=== PATIENT | male | born 1955 | race Caucasian/White ===

== ENCOUNTER → 2017-02-02 | Outpatient (CLI) | payer BC ==
[2017-02-02 10:06] LABS: Appearance,Urine Clear (Clear); Bacteria,Urine Occasional /hpf; Bilirubin,Urine Negative (Negative); Glucose,Urine (UA) Negative (Negative); Ketones,Urine Negative (Negative); Leukocyte Esterase,Urine Trace (Negative); Mucus,Urine Occasional /hpf; Nitrite,Urine Negative (Negative); Particle Count 3469; Protein,Urine Trace (Negative); RBC,Urine 2 /hpf (0-5); Specific Gravity,Urine 1.021 (1.001-1.035); UA Billing (MACRO vs. MICRO) MICRO; Urobilinogen,Urine <2.0 mg/dL (<2.0); WBC,Urine 8 /hpf (0-5)
[2017-02-02 12:29] LABS: Hemoglobin A1C 6.2 % (4.2-6.1)
== END | disposition home or self-care (01) ==
LOC: LABWHC1 09:08
PROVIDERS: ATTEND Internal Medicine
DX: E11.9 Type 2 diabetes mellitus without complications (principal); R31.9 Hematuria, unspecified
CPT/HCPCS: 36415; 81001; 82947; 83036

== ENCOUNTER → 2017-06-09 | Outpatient (CLI) | payer BC ==
[2017-06-09 13:58] LABS: Hemoglobin A1C 6.4 % (4.2-6.1)
== END ==
LOC: LABWHC1 08:44
PROVIDERS: ATTEND Internal Medicine
DX: E11.9 Type 2 diabetes mellitus without complications (principal)
CPT/HCPCS: 36415; 82947; 83036

== ENCOUNTER → 2017-06-12 | Outpatient (CLI) | payer BC ==
[2017-06-12 12:34] LABS: Basophils % (A) 1 %; CH 31.3; CHCM 35.4; Eosinophils # (A) 0.1 k/uL (0-0.7); Eosinophils % (A) 2 %; HCT 42.8 % (39.0-53.0); HDW 2.92; HGB 15.3 gm/dL (13.0-17.5); Luc # (Auto) 0.08; Luc % (Auto) 2; Lymphocytes # (A) 1.6 k/uL (1.0-4.8); Lymphocytes % (A) 29 %; MCH 31.8 pg (25.0-35.0); MCHC 35.8 g/dL (31.0-37.0); Mean Platelet Volume 6.8; Monocytes # (A) 0.3 k/uL (0-1.0); Monocytes % (A) 5 %; Neutrophils # (A) 3.4 k/uL (1.3-7.7); Neutrophils % (A) 61 %; RBC 4.81 m/uL (4.30-5.90); RDW 13.1 % (11.5-15.5); WBC 5.6 k/uL (3.8-10.6); WBC (Perox) 5.27
[2017-06-12 13:16] LABS: C Reactive Protein <5.0 mg/L (<10.0); Rheumatoid Factor, Qnt <9 IU/mL (<12); Uric Acid 4.7 mg/dL (3.5-8.5)
[2017-06-12 14:33] LABS: Erythrocyte Sedimentation Rate 2 mm/hr (0-15)
[2017-06-13 11:17] LABS: HLA B27 NEGATIVE; HLA B27 Comment SEEBELOW
== END | disposition home or self-care (01) ==
LOC: LABWHC1 12:09
PROVIDERS: ATTEND Podiatrist Foot & Ankle Surgery
DX: D64.9 Anemia, unspecified (principal); M12.0 Chronic postrheumatic arthropathy [Jaccoud]
CPT/HCPCS: 36415; 84550; 85025; 85652; 86038; 86140; 86431; 86812

== ENCOUNTER → 2017-06-20 | Outpatient (CLI) | payer BC ==
--- NOTE | 2017-06-20 15:19 | XR ---
Left foot HISTORY: Left foot pain 3 views of the left foot correlated to bone scan same date Degenerative changes are present at the first metatarsophalangeal joint. Alignment and bone mineraliz ation are maintained. No fracture or dislocation is evident. Joint spaces and the tarsometatarsal amanda nts of the second and third digits not well defined. IMPRESSION: Difficult to exclude ankylosis at the tarsometatarsal joints of the second and third digi ts. No evident fracture or dislocation. Findings in the first metatarsophalangeal joint as described.
--- NOTE | 2017-06-20 15:33 | NM ---
EXAMINATION TYPE: NM bone 3 phase DATE OF EXAM: 06/20/2017 COMPARISON: Left foot same date HISTORY: Left fifth metatarsal pain, M 86.1 Triple phase bone scintigraphy was performed following the injection of 25.6 mCi Tc 99m MDP. Immedia te images and 3 hours post injection images acquired. FINDINGS: Uptake present within the mid foot blood pool images on the right. Relative symmetric uptake on blood flow. Delayed images show uptake in the first metatarsophalangeal joints, lateral aspect of the righ t foot greater than left. Midfoot uptake on the right is greater than on the left. IMPRESSION: Findings felt more likely to represent degenerative changes. Uptake within the lateral right foot is greater than the left foot. This may be due to stress changes.
== END | disposition home or self-care (01) ==
LOC: RADNMMAIN 07:35
PROVIDERS: ATTEND Podiatrist Foot & Ankle Surgery
DX: M79.672 Pain in left foot (principal)
CPT/HCPCS: 73630; 78315; A9503

== ENCOUNTER → 2017-10-11 | Outpatient (CLI) | payer BC ==
[2017-10-11 15:09] LABS: CH 30.9; CHCM 33.8; HCT 44.6 % (39.0-53.0); HGB 15.2 gm/dL (13.0-17.5); MCH 31.3 pg (25.0-35.0); MCV 91.9 fL (80.0-100.0); Mean Platelet Volume 7.3; RBC 4.85 m/uL (4.30-5.90); RDW 14.8 % (11.5-15.5); WBC 7.2 k/uL (3.8-10.6)
[2017-10-11 15:33] LABS: ALT 84 U/L (21-72); AST 58 U/L (17-59); Alkaline Phosphatase 57 U/L (38-126); Anion Gap 9 mmol/L; Blood Urea Nitrogen 18 mg/dL (9-20); Calcium 9.6 mg/dL (8.4-10.2); Carbon Dioxide 24 mmol/L (22-30); Chloride 108 mmol/L (98-107); Cholesterol 143 mg/dL (<200); Glucose 111 mg/dL (74-99); HDL Cholesterol 46 mg/dL (40-60); Non-African American GFR(MDRD) >60 (>60 ml/min/1.73 sqM); Potassium 4.4 mmol/L (3.5-5.1); Sodium 141 mmol/L (137-145); Total Bilirubin 0.7 mg/dL (0.2-1.3); Total Protein 7.4 g/dL (6.3-8.2)
[2017-10-11 16:01] LABS: Prostate Specific Antigen 2.09 ng/mL (0.00-4.00)
== END | disposition home or self-care (01) ==
LOC: LABWHC1 14:29
PROVIDERS: ATTEND Internal Medicine
DX: Z00.00 Encounter for general adult medical examination without abnormal findings (principal); E55.9 Vitamin D deficiency, unspecified; E78.5 Hyperlipidemia, unspecified; I10 Essential (primary) hypertension; N40.0 Benign prostatic hyperplasia without lower urinary tract symptoms; E11.9 Type 2 diabetes mellitus without complications; E87.8 Other disorders of electrolyte and fluid balance, not elsewhere classified
CPT/HCPCS: 36415; 80053; 80061; 82306; 83036; 84153; 85027

== ENCOUNTER → 2018-01-19 | Outpatient (CLI) | payer BC ==
[2018-01-19 21:20] LABS: Hemoglobin A1C 6.9 % (4.0-6.0)
== END | disposition home or self-care (01) ==
LOC: LABWHC1 09:35
PROVIDERS: ATTEND Internal Medicine
DX: I10 Essential (primary) hypertension (principal); E11.9 Type 2 diabetes mellitus without complications
CPT/HCPCS: 36415; 82947; 83036

== ENCOUNTER → 2018-06-01 | Outpatient (CLI) | payer OTHER | END | disposition home or self-care (01) | LOC: LABWHC1 10:54 | PROVIDERS: ATTEND Internal Medicine | DX: E11.9 Type 2 diabetes mellitus without complications (principal) | CPT/HCPCS: 36415; 82947; 83036 ==

== ENCOUNTER → 2018-10-09 | Outpatient (CLI) | payer OTHER ==
[2018-10-09 09:57] LABS: Basophils % (A) 1 %; Eosinophils # (A) 0.2 k/uL (0-0.7); Eosinophils % (A) 3 %; HCT 42.2 % (39.0-53.0); HGB 14.1 gm/dL (13.0-17.5); Lymphocytes # (A) 1.3 k/uL (1.0-4.8); Lymphocytes % (A) 26 %; MCH 30.5 pg (25.0-35.0); MCHC 33.4 g/dL (31.0-37.0); MCV 91.5 fL (80.0-100.0); Mean Platelet Volume 6.6; Monocytes # (A) 0.3 k/uL (0-1.0); Monocytes % (A) 6 %; Neutrophils # (A) 3.1 k/uL (1.3-7.7); Neutrophils % (A) 63 %; Platelet Count 234 k/uL (150-450); RBC 4.61 m/uL (4.30-5.90); RDW 13.6 % (11.5-15.5); WBC 4.9 k/uL (3.8-10.6)
[2018-10-09 12:43] LABS: Erythrocyte Sedimentation Rate 2 mm/hr (0-15)
[2018-10-09 17:29] LABS: ALT 51 U/L (10-49); AST 44 U/L (14-35); Albumin/Globulin Ratio 2.26 (1.20-2.10); Alkaline Phosphatase 47 U/L (41-126); C Reactive Protein <0.4 mg/dL (0.0-0.8); Carbon Dioxide 25.4 mmol/L (21.6-31.8); Chloride 111 mmol/L (96-109); Cholesterol 115 mg/dL (0-200); Creatine Kinase 210 U/L (35-257); Globulin 1.9 g/dL (2.1-3.7); Glucose 133 mg/dL (70-110); Potassium 4.6 mmol/L (3.5-5.5); Sodium 141 mmol/L (135-145); Total Bilirubin 0.6 mg/dL (0.3-1.2); Total Protein 6.2 g/dL (6.2-8.2)
[2018-10-09 18:39] LABS: Hemoglobin A1C 6.9 % (4.0-6.0)
== END | disposition home or self-care (01) ==
LOC: LABWHC1 09:21
PROVIDERS: ATTEND Internal Medicine
DX: N40.0 Benign prostatic hyperplasia without lower urinary tract symptoms (principal); E11.9 Type 2 diabetes mellitus without complications; E78.5 Hyperlipidemia, unspecified; I10 Essential (primary) hypertension; E03.9 Hypothyroidism, unspecified; E66.9 Obesity, unspecified; E55.9 Vitamin D deficiency, unspecified
CPT/HCPCS: 36415; 80053; 80061; 82306; 82550; 83036; 84153; 84443; 85025; 85652; 86140

== ENCOUNTER → 2019-03-08 | Outpatient (CLI) | payer OTHER ==
[2019-03-09 01:26] LABS: Hemoglobin A1C 7.3 % (4.0-6.0)
== END ==
LOC: LABWHC1 15:20
PROVIDERS: ATTEND Internal Medicine
DX: E11.9 Type 2 diabetes mellitus without complications (principal)
CPT/HCPCS: 36415; 82947; 83036

== ENCOUNTER → 2019-09-04 | Outpatient (CLI) | payer OTHER ==
[2019-09-04 19:25] LABS: Hemoglobin A1C 6.8 % (4.0-6.0)
== END | disposition home or self-care (01) ==
LOC: LABWHC1 07:16
PROVIDERS: ATTEND Internal Medicine
DX: E11.65 Type 2 diabetes mellitus with hyperglycemia (principal)
CPT/HCPCS: 36415; 82947; 83036

== ENCOUNTER → 2019-11-04 | Outpatient (CLI) | payer OTHER ==
--- NOTE | 2019-11-05 08:05 | XR ---
EXAMINATION TYPE: XR Hip Complete RT DATE OF EXAM: 11/04/2019 COMPARISON: NONE HISTORY: Pain TECHNIQUE: 2 views submitted FINDINGS: There is no evidence of erosive change or acute fracture. Severe narrowing of the hip joint with hype rtrophic change of the acetabulum. IMPRESSION: 1. Severe arthropathy.
--- NOTE | 2019-11-05 08:06 | XR ---
EXAMINATION TYPE: XR femur RT DATE OF EXAM: 11/04/2019 CLINICAL HISTORY: TECHNIQUE: Two views of the femur are obtained. COMPARISON: None FINDINGS: There is no acute fracture or dislocation seen in the right femur. There is severe arthrop athy involving the hip joint with hypertrophic change of the acetabulum. This can be associated with femoral acetabular impingement. Tiny bone island involving the femoral head noted. Significant arthro estrella of the knee joint. IMPRESSION: 1. Severe arthropathy involving the hip and knee joint.
== END | disposition home or self-care (01) ==
LOC: RADXRMAIN 17:13
PROVIDERS: ATTEND Internal Medicine
DX: M12.851 Other specific arthropathies, not elsewhere classified, right hip (principal); M12.861 Other specific arthropathies, not elsewhere classified, right knee
CPT/HCPCS: 73502

== ENCOUNTER → 2019-12-13 | Outpatient (CLI) | payer OTHER ==
[2019-12-13 13:47] LABS: Basophils # (A) 0.2 k/uL (0-0.2); Basophils % (A) 1 %; Eosinophils # (A) 0.1 k/uL (0-0.7); Eosinophils % (A) 0 %; HCT 41.4 % (39.0-53.0); HGB 14.1 gm/dL (13.0-17.5); Lymphocytes % (A) 13 %; MCH 31.1 pg (25.0-35.0); MCV 91.4 fL (80.0-100.0); Mean Platelet Volume 7.5; Monocytes # (A) 0.7 k/uL (0-1.0); Monocytes % (A) 5 %; Neutrophils # (A) 11.6 k/uL (1.3-7.7); Neutrophils % (A) 79 %; Platelet Count 282 k/uL (150-450); RBC 4.53 m/uL (4.30-5.90); RDW 12.8 % (11.5-15.5); WBC 14.6 k/uL (3.8-10.6)
[2019-12-13 18:01] LABS: Erythrocyte Sedimentation Rate 6 mm/hr (0-15)
[2019-12-13 19:57] LABS: Hemoglobin A1C 8.1 % (4.0-6.0)
[2019-12-13 20:44] LABS: ALT 37 U/L (10-49); AST 25 U/L (14-35); African American GFR (CKD) 91.1 (60.0-200.0); Alkaline Phosphatase 51 U/L (41-126); C Reactive Protein <0.4 mg/dL (0.0-0.8); Calcium 9.6 mg/dL (8.7-10.3); Carbon Dioxide 29.2 mmol/L (21.6-31.8); Chloride 105 mmol/L (96-109); Chol/HDL Ratio 2.38; Cholesterol 143 mg/dL (0-200); Creatine Kinase 49 U/L (35-257); GGT 42 U/L (0-73); Glucose 126 mg/dL (70-110); Non-African American GFR(CKD) 78.6 (60.0-200.0); Potassium 4.2 mmol/L (3.5-5.5); Sodium 143 mmol/L (135-145); Total Bilirubin 0.7 mg/dL (0.3-1.2); Total Protein 6.6 g/dL (6.2-8.2)
== END | disposition home or self-care (01) ==
LOC: LABWHC1 12:58
PROVIDERS: ATTEND Internal Medicine
DX: N40.0 Benign prostatic hyperplasia without lower urinary tract symptoms (principal); E11.65 Type 2 diabetes mellitus with hyperglycemia; E03.9 Hypothyroidism, unspecified; E78.5 Hyperlipidemia, unspecified
CPT/HCPCS: 36415; 80053; 80061; 82550; 82977; 83036; 84153; 84443; 85025; 85652; 86140

== ENCOUNTER → 2020-01-23 | Outpatient (CLI) | payer OTHER ==
[2020-01-23 17:04] LABS: Basophils # (A) 0.1 k/uL (0-0.2); Basophils % (A) 1 %; Eosinophils # (A) 0.2 k/uL (0-0.7); Eosinophils % (A) 3 %; HCT 38.2 % (39.0-53.0); HGB 13.2 gm/dL (13.0-17.5); Lymphocytes # (A) 1.5 k/uL (1.0-4.8); Lymphocytes % (A) 20 %; MCH 30.9 pg (25.0-35.0); MCHC 34.5 g/dL (31.0-37.0); MCV 89.6 fL (80.0-100.0); Mean Platelet Volume 7.7; Monocytes # (A) 0.5 k/uL (0-1.0); Monocytes % (A) 6 %; Neutrophils # (A) 5.3 k/uL (1.3-7.7); Neutrophils % (A) 69 %; Platelet Count 287 k/uL (150-450); RBC 4.27 m/uL (4.30-5.90); RDW 13.7 % (11.5-15.5); WBC 7.7 k/uL (3.8-10.6)
[2020-01-23 23:16] LABS: African American GFR (CKD) 81.2 (60.0-200.0); Anion Gap 8.4 mmol/L (4.00-12.00); BUN/Creat Ratio 13.64 Ratio (12.00-20.00); Calcium 9.9 mg/dL (8.7-10.3); Carbon Dioxide 27.6 mmol/L (21.6-31.8); Non-African American GFR(CKD) 70.1 (60.0-200.0); Potassium 3.9 mmol/L (3.5-5.5)
== END | disposition home or self-care (01) ==
LOC: LABWHC1 16:31
PROVIDERS: ATTEND Nurse Practitioner
DX: R19.5 Other fecal abnormalities (principal)
CPT/HCPCS: 36415; 80048; 82272; 85025

== ENCOUNTER → 2020-02-05 | Outpatient (CLI) | payer OTHER ==
[2020-02-05 17:08] LABS: Prothrombin Time 10.5 sec (9.0-12.0)
[2020-02-05 17:11] LABS: ALT 27 U/L (4-49); AST 31 U/L (17-59); African American GFR (CKD) >90 (>60 ml/min/1.73 sqM); Albumin 4.5 g/dL (3.5-5.0); Alkaline Phosphatase 43 U/L (38-126); Anion Gap 8 mmol/L; Blood Urea Nitrogen 20 mg/dL (9-20); Calcium 9.6 mg/dL (8.4-10.2); Carbon Dioxide 24 mmol/L (22-30); Chloride 105 mmol/L (98-107); Glucose 106 mg/dL (74-99); Non-African American GFR(CKD) >90 (>60 ml/min/1.73 sqM); Potassium 4.1 mmol/L (3.5-5.1); Sodium 137 mmol/L (137-145); Total Bilirubin 0.4 mg/dL (0.2-1.3); Total Protein 7.2 g/dL (6.3-8.2)
[2020-02-05 17:34] LABS: HCT 36.6 % (39.0-53.0); HGB 12.4 gm/dL (13.0-17.5); MCH 30.4 pg (25.0-35.0); MCHC 33.8 g/dL (31.0-37.0); MCV 89.9 fL (80.0-100.0); Mean Platelet Volume 7.7; Platelet Count 246 k/uL (150-450); RBC 4.08 m/uL (4.30-5.90); RDW 13.3 % (11.5-15.5); WBC 6.2 k/uL (3.8-10.6)
[2020-02-05 18:07] LABS: Appearance,Urine Clear (Clear); Bilirubin,Urine Negative (Negative); Blood,Urine Negative (Negative); Color,Urine Yellow; Glucose,Urine (UA) Negative (Negative); Ketones,Urine Negative (Negative); Leukocyte Esterase,Urine Negative (Negative); Nitrite,Urine Negative (Negative); PH, Urine 6.5 (5.0-8.0); Protein,Urine Negative (Negative); Specific Gravity,Urine 1.016 (1.001-1.035); Urobilinogen,Urine <2.0 mg/dL (<2.0)
== END | disposition home or self-care (01) ==
LOC: LABPAT 15:28
PROVIDERS: ATTEND Orthopaedic Surgery
DX: Z01.818 Encounter for other preprocedural examination (principal); Z01.812 Encounter for preprocedural laboratory examination; Z51.81 Encounter for therapeutic drug level monitoring
CPT/HCPCS: 80053; 81003; 85027; 85610; 85730; 87070; 93005

== ENCOUNTER → 2020-04-02 | Outpatient (CLI) | payer OTHER ==
[2020-04-02 19:55] LABS: Hemoglobin A1C 6.4 % (4.0-6.0)
== END | disposition home or self-care (01) ==
LOC: LABWHC1 11:43
PROVIDERS: ATTEND Internal Medicine
DX: E11.65 Type 2 diabetes mellitus with hyperglycemia (principal)
CPT/HCPCS: 36415; 83036

== ENCOUNTER → 2020-04-14 | Outpatient (CLI) | payer OTHER ==
[2020-04-14 10:37] LABS: HCT 43.5 % (39.0-53.0); HGB 14.4 gm/dL (13.0-17.5); MCH 30.3 pg (25.0-35.0); MCHC 33.1 g/dL (31.0-37.0); MCV 91.5 fL (80.0-100.0); Mean Platelet Volume 7.2; Platelet Count 264 k/uL (150-450); RBC 4.75 m/uL (4.30-5.90); RDW 12.9 % (11.5-15.5); WBC 6.9 k/uL (3.8-10.6)
[2020-04-14 10:44] LABS: Prothrombin Time 10.3 sec (9.0-12.0)
[2020-04-14 11:15] LABS: Appearance,Urine Cloudy (Clear); Bacteria,Urine Rare /hpf; Bilirubin,Urine Negative (Negative); Blood,Urine Negative (Negative); Color,Urine Yellow; Glucose,Urine (UA) Negative (Negative); Ketones,Urine 1+ (Negative); Leukocyte Esterase,Urine Large (Negative); Mucus,Urine Rare /hpf; Nitrite,Urine Negative (Negative); PH, Urine 5.5 (5.0-8.0); Protein,Urine 1+ (Negative); Specific Gravity,Urine 1.029 (1.001-1.035); Squamous Epithelial Cell,Urine 2 /hpf (0-4); Urobilinogen,Urine <2.0 mg/dL (<2.0); WBC,Urine >182 /hpf (0-5)
[2020-04-14 16:14] LABS: African American GFR (CKD) 107.9 (60.0-200.0); Albumin 4.5 g/dL (3.80-4.90); Albumin/Globulin Ratio 2.05 (1.60-3.17); Anion Gap 11.2 mmol/L (4.00-12.00); Carbon Dioxide 24.8 mmol/L (21.6-31.8); Globulin 2.2 g/dL (1.6-3.3); Non-African American GFR(CKD) 93.1 (60.0-200.0); Potassium 4.3 mmol/L (3.5-5.5); Total Bilirubin 0.5 mg/dL (0.3-1.2); Total Protein 6.7 g/dL (6.2-8.2)
== END | disposition home or self-care (01) ==
LOC: LABWHC1 09:55
PROVIDERS: ATTEND Orthopaedic Surgery
DX: Z01.818 Encounter for other preprocedural examination (principal); Z01.812 Encounter for preprocedural laboratory examination
CPT/HCPCS: 36415; 80053; 81001; 85027; 85610; 85730; 87070; 87635

== ENCOUNTER 2020-04-17 09:29 | Day surgery (SDC) | payer OTHER ==
[2020-04-13 15:06] VITALS: BMI 30.9
[~2020-04-17 09:29] MED LIST: ACETAMINOPHEN TAB 500 MG TAB PO ONE; DEXAMETHASONE SOD PHOSPHATE 10 MG/ML 1 ML VIAL IV ONE; HYDROmorphone 0.5 MG/0.5 ML SYRINGE IVP PRN; LACTATED RINGERS 1,000 ML IV SCH; LIDOCAINE 1% (10MG/ML) FOR IV START INTRADERMA PRN; MELOXICAM 7.5 MG TAB PO ONE; MIDAZOLAM 2 MG/2 ML VIAL IV PRN; ONDANSETRON 4 MG/2 ML VIAL IVP ONE; ROPIVACAINE 246.25 MG, EPINEPHrine 0.5 MG, KETOROLAC 30 MG, cloNIDine HCL/PF 80 MCG, WA... MISCELLANE ONE; TRANEXAMIC ACID 1,000 MG in SODIUM CHLORIDE 0.9% 100 ML IVPB ONE
[2020-04-17 10:10] LABS: Glucose,Whole Blood 147 mg/dL (75-99)
[2020-04-17] MEDS ORDERED: MIDAZOLAM 2 MG/2 ML VIAL ONE (10:15)
[2020-04-17] MEDS ORDERED: TRANEXAMIC ACID 1,000 MG/10 ML VIAL ONE (10:15)
[2020-04-17] MEDS ORDERED: SODIUM CHLORIDE 0.9% 100 ML BAG ONE (10:15)
[2020-04-17] MEDS ORDERED: PHENYLEPHRINE-0.9% NACL SYG 1 MG/10 ML SYRINGE ONE (10:15)
[2020-04-17] MEDS ORDERED: PROPOFOL 10 MG/ML 20 ML VIAL IV ONE (10:15)
[2020-04-17] MEDS ORDERED: ePHEDrine SULFATE/0.9% NACL/PF 50 MG/5 ML SYRINGE IV ONE (10:15)
[2020-04-17] MEDS ORDERED: fentaNYL (PF) 50 MCG/ML 2 ML AMP ONE (10:15)
[2020-04-17] MEDS ORDERED: diphenhydrAMINE 50 MG/ML 1 ML VIAL ONE (10:15)
[2020-04-17] MEDS ORDERED: LACTATED RINGERS 1,000 ML IV ONE (11:00)
--- NOTE | 2020-04-17 11:47 | P.OP ---
Date of Procedure: 04/17/20 Procedure(s) Performed: PREOPERATIVE DIAGNOSIS: Right hip severe osteoarthritis POSTOPERATIVE DIAGNOSIS: Right hip severe osteoarthritis OPERATION: Right hip total replacement arthroplasty (uncemented implantation with metal on polyethylene articulation). ANESTHESIA: Spinal ESTIMATED BLOOD LOSS: 100 ml. METAL FURNACE OPERATOR: Ralf Flores PA-C (assistance with: patient positioning, retraction, exposure, hemostasis, leg positioning, implantation, irrigation, closure, dressing) COMPLICATIONS: None apparent. COMPONENTS IMPLANTED: Clair continuum acetabular cup with cluster holes; continuum longevity 15 elevated liner, 32 mm id; Clair VerSys Fiber Metal stem; VerSys 32 mm femoral head with plus 7 mm neck length extension INDICATIONS: Colin is a 65-year-old male with significant end-stage osteoarthritis involving the right hip and commensurate severe symptoms. He presents to the operating room today for total hip replacement. I have discussed the steps of the operation as well as potential risks and complications as being inclusive of, but not limited to: Leading, infection, scarring, discomfort, or vessel and/or nerve damage, need for further surgery, loosening, dislocation, wear, osteolysis, limb length inequality, fracture, blood clot, pulmonary embolism, , persistent limp, and other risks. The patient is aware these risks and wishes to proceed with surgery and has signed a consent form. PROCEDURE: After appropriate consent was obtained, the patient was taken to the operating room and placed in supine position. Spinal anesthetic was administered and after confirmation of adequate anesthesia, the patient was placed into the lateral decubitus position with the right side up. Care was taken to make sure that all pressure points were adequately padded and he was stabilized to the table with a [place] hip positioner. The right hip was prepped and draped in the usual aseptic fashion using a combination of ChloraPrep and alcohol. Ioban drape was used for the case and the patient received intravenous antibiotics prior to the incision. "Time out" was called, confirming patient identity, side, procedure, availability of implants and administration of antibiotics. The incision was created directly over the greater trochanter and carried slightly posteriorly for a posterior approach to the hip. The incision was then deepened down to subcutaneous tissue and fascia pa. Fascia pa was split in line with the incision and split proximally along the fibers of the gluteus rafael. The underlying fibers of the muscle were teased apart using finger dissection and bleeding vessels were picked up and coagulated. Retractor was then placed posteriorly consisting of a blunt Ana Laura. The short external rotators and capsule were exposed using good visualization of the attachment of the external rotators to the femur was established. The short external rotators and capsule were released using electrocautery from their femoral attachments. A hockey stick shaped incision was created in the capsule. Joint fluid was evacuated and the patient's hip was able to be dislocated fairly easily. The patient's femoral head was severely arthritic with eburnated bone present and a 360 degrees mtz of osteophytes. The femoral neck cut was created approximately 1 cm superior to the lesser trochanter using a reciprocating saw. The femoral head and neck fragment was removed and attention was then directed to the acetabulum. An anterior acetabular retractor was applied followed by posterior retraction of the capsule with a Meyerding retractor. This afforded good visualization into the acetabular cavity. Soft tissue was removed and residual cartilage within the acetabular vault was removed using a curette. Labrum was removed using a long-handled knife. Attention was then directed to reaming. The size 44 reamer was used first, followed by increasing increments until the final size reamer was used. Please see the implantation sheet for exact sizes used for the components. Once the final reamer had been utilized to expand the socket it was noted that there was a good supportive bone around the acetabular socket and no further reaming needed to be performed. The trial the same size as the last reamer used was then impacted into the acetabular vault and found to have good fit. The acetabular component, one size (2mm) greater than the trial was then called for. The cluster holes were placed posteriorly and the component was impacted in a position of approximately 40 degrees abduction and 20 degrees anteversion. This matched this patient's [place] anteversion and it was noted that the cup had excellent stability without need for additional screw fixation. Attention was then directed to the acetabular liner. The anteversion and abduction angle of the component was noted to be very good. A 15 elevated liner was used and locked into position with the elevation posterior superior. Osteophytes around the posterior and inferior aspect of the acetabulum were trimmed as necessary to prevent any impingement. Attention was then directed back to the proximal femur. Retractors were placed around the proximal femur and box osteotome was used followed by canal finder and trochanteric reamer. Cylindrical reaming was performed. Progressive broaching was then performed starting with a #10 broach and progressing final size, in a position of 15 degrees anteversion. Quechan anteversion was within 5 degrees of stem position. The final size broach had excellent fit and fill of the patient's metaphysis and diaphysis. Trial reduction was then performed starting with size 32 mm femoral head and various neck combination of stability, limb length equality, and soft tissue tension. Trial components were then removed. The canal was lavaged and the final size femoral stem component was impacted into position. The implant fit very well and had excellent stability. The femoral head was then impacted onto the Nichole taper. Blood and debris were removed from the acetabular component and the hip was then reduced and checked for stability, limb length and soft tissue tension. These parameters found to be satisfactory, the wound was then thoroughly irrigated with normal saline. Final hemostasis was obtained using electrocautery and IV tranexamic acid, 1 g given at the time of prepping and draping, and another 1 g given at the time of closure. Local anesthetic solution consisting of ropivacaine with epinephrine, clonidine, and ketorolac was also used throughout the case targeting the capsule, fascia, and skin. Closure of the capsule was performed meticulously using #3 Vicryl suture. Four [id number] sutures were placed in the posterior capsule along with repair of the external rotators. The fascia pa was then repaired using combination of #3 Vicryl suture in interrupted fashion and Quill and running fashion. 2-0 Vicryl suture was used for the subcutaneous tissues and 3-0 Quill for the skin. Dermabond or Steri-Strips were then applied. The patient tolerated the procedure well. There were no complications and the wound bed was dry and there was no need for drain placement. Sterile dressing was then applied and the patient was carefully removed from the operating room table, placed on the stretcher and was taken to the recovery room in stable condition. Sponge and needle counts were correct.
[2020-04-17] MEDS ORDERED: HYDROcodone/APAP 10-325MG 1 EACH TAB PO PRN (12:25)
[2020-04-17] MEDS ORDERED: ONDANSETRON 4 MG/2 ML VIAL IVP PRN (12:25)
[2020-04-17] MEDS ORDERED: hydrOXYzine PAMOATE 25 MG CAP PO PRN (12:25)
[2020-04-17] MEDS ORDERED: NALOXONE 0.4 MG/ML 1 ML VIAL IV PRN (12:25)
[2020-04-17] MEDS ORDERED: HYDROmorphone 0.5 MG/0.5 ML SYRINGE IVP PRN ×2 (12:25)
[2020-04-17] MEDS ORDERED: MAGNESIUM HYDROXIDE 2,400 MG/10 ML CUP PO PRN (12:25)
--- NOTE | 2020-04-17 12:48 | XR ---
EXAMINATION TYPE: XR Hip Limited RT DATE OF EXAM: 04/17/2020 COMPARISON: 11/04/2019 HISTORY: Postop TECHNIQUE: Single AP right hip FINDINGS: Femoral prosthesis is been placed. Acetabular component is present. No acute fractures are evident. Postsurgical soft tissues are present. IMPRESSION: 1. No acute fracture post right hip replacement.
[2020-04-17] MEDS: LACTATED RINGERS 1,000 ML IV SCH (13:54)
[2020-04-17 15:48] VITALS: RESP 18
[2020-04-17 16:39] LABS: Glucose,Whole Blood 185 mg/dL (75-99)
[2020-04-17] MEDS: INSULIN ASPART (NovoLOG) 100 UNIT/ML VIAL SQ SCH ×2 (17:13→20:28)
[2020-04-17] MEDS: metFORMIN 500 MG TAB PO SCH (17:38)
[2020-04-17] MEDS: HYDROmorphone 0.5 MG/0.5 ML SYRINGE IVP PRN ×2 (17:44→23:23)
[2020-04-17] MEDS: HYDROcodone/APAP 10-325MG 1 EACH TAB PO PRN (20:00)
[2020-04-17] MEDS: ASPIRIN 325 MG TAB PO SCH (20:00)
[2020-04-17] MEDS: TAMSULOSIN 0.4 MG CAP.ER.24H PO SCH (20:01)
[2020-04-17 20:17] LABS: Glucose,Whole Blood 243 mg/dL (75-99)
[2020-04-17] MEDS ORDERED: SENNOSIDES-DOCUSATE SODIUM 1 EACH TAB PO SCH (21:00)
[2020-04-17] MEDS ORDERED: ATORVASTATIN 20 MG TAB PO SCH (21:00)
[2020-04-18] MEDS: HYDROcodone/APAP 10-325MG 1 EACH TAB PO PRN ×2 (03:34→08:36)
[2020-04-18] MEDS: LACTATED RINGERS 1,000 ML IV SCH (03:35)
[2020-04-18 06:15] VITALS: BP 122/60; PULSE 74; TEMP 98.3
[2020-04-18 06:57] LABS: Glucose,Whole Blood 147 mg/dL (75-99)
[2020-04-18 07:14] LABS: Basophils % (A) 0 %; Eosinophils % (A) 0 %; HCT 37.7 % (39.0-53.0); HGB 12.3 gm/dL (13.0-17.5); Lymphocytes # (A) 1.1 k/uL (1.0-4.8); Lymphocytes % (A) 8 %; MCH 30.1 pg (25.0-35.0); MCHC 32.6 g/dL (31.0-37.0); MCV 92.3 fL (80.0-100.0); Mean Platelet Volume 7.7; Monocytes # (A) 0.8 k/uL (0-1.0); Monocytes % (A) 6 %; Neutrophils # (A) 11.7 k/uL (1.3-7.7); Neutrophils % (A) 86 %; Platelet Count 246 k/uL (150-450); RBC 4.08 m/uL (4.30-5.90); RDW 12.9 % (11.5-15.5); WBC 13.7 k/uL (3.8-10.6)
[2020-04-18] MEDS: metFORMIN 500 MG TAB PO SCH (07:35)
[2020-04-18] MEDS: TAMSULOSIN 0.4 MG CAP.ER.24H PO SCH (07:35)
[2020-04-18] MEDS: ASPIRIN 325 MG TAB PO SCH (07:35)
[2020-04-18] MEDS: INSULIN ASPART (NovoLOG) 100 UNIT/ML VIAL SQ SCH (07:46)
[2020-04-18] MEDS ORDERED: MULTIVITAMINS, THERA 1 EACH TAB PO SCH (09:00)
--- NOTE | 2020-04-18 22:15 | P.DS ---
Providers Expected date of discharge: 04/18/20 Attending physician: Steven Mathew Consults: 04/17/20 14:48 Consult Physician Routine Consulting Provider: Milan Hernández Consult Reason/Comments: medical management Do you want consulting provider notified?: Yes Primary care physician: Milan Hernández - Discharge Diagnosis(es) (1) S/P total hip arthroplasty Patient was admitted to the OR on 04/17/2020 to undergo a right total hip arthroplasty. He had failed conservative measures as an outpatient and desired to proceed with elective surgery after given informed consent. He underwent the above procedure which he tolerated well without complication. Postoperative hospital course has remained without complication. On day of discharge he is afebrile, vital signs stable, labs within acceptable ranges, tolerating by mouth meds and diet, voiding without difficulty, positive flatus, denies abdominal pain or calf pain, pain is controlled on oral pain medication and has no new complaints. Wound is benign, neurovascular status is intact, calf is soft and nontender, abdomen soft and nontender. Review of systems is negative for numbness, tingling, fever, chills, chest pain, shortness of breath, nausea, vomiting, dizziness, headaches, slurred speech or other Status: Acute Priority: Medium Procedures: Right VEL Patient Condition at Discharge: Good Plan - Discharge Summary Discharge Rx Participant: Yes New Discharge Prescriptions: New Aspirin 325 mg PO BID #56 tab HYDROcodone/APAP 10-325MG [Zamora 10] 1 each PO Q6H PRN #28 tab PRN Reason: Pain No Action Simvastatin [Zocor] 40 mg PO HS Multivitamins, Thera [Multivitamin (formulary)] 1 tab PO DAILY metFORMIN HCL 1,000 mg PO BID Tamsulosin HCl [Flomax] 0.4 mg PO BID Lisinopril [Zestril] 5 mg PO HS Discharge Medication List Lisinopril [Zestril] 5 mg PO HS 01/29/20 [History] Multivitamins, Thera [Multivitamin (formulary)] 1 tab PO DAILY 01/29/20 [History] Simvastatin [Zocor] 40 mg PO HS 01/29/20 [History] Tamsulosin HCl [Flomax] 0.4 mg PO BID 01/29/20 [History] metFORMIN HCL 1,000 mg PO BID 03/04/20 [History] Aspirin 325 mg PO BID #56 tab 04/17/20 [Rx] HYDROcodone/APAP 10-325MG [Zamora 10] 1 each PO Q6H PRN #28 tab 04/17/20 [Rx] Follow up Appointment(s)/Referral(s): [facility], [NON-STAFF] - As Needed Steven Mathew MD [STAFF PHYSICIAN] - 2 Weeks (Patient may follow-up with Dr. Mathew at [facility] in 2 weeks following discharge. ) Patient Instructions/Handouts: Total Hip Replacement (DC) Activity/Diet/Wound Care/Special Instructions: 1. Weight-bear as tolerated on right lower extremity 2. May apply ice over the incision site for comfort as needed 3. Keep dressing over the right hip clean, dry, and intact 4. Keep dressing intact over the right hip over the next 2 weeks 5. Avoid excessive activities with the right lower extremity 6. Take medications as prescribed 7. If any questions or concerns, please call [facility] at [phone] Discharge Disposition: HOME WITH HOME HEALTH SERVICES
== END 2020-04-18 10:55 | disposition home health service (06) ==
LOC: OR 09:29 → 5NMEDONC 11:41 → OR 04-18 10:55
PROVIDERS: ATTEND Orthopaedic Surgery
DX: M16.11 Unilateral primary osteoarthritis, right hip (principal); M25.751 Osteophyte, right hip; E11.9 Type 2 diabetes mellitus without complications; I10 Essential (primary) hypertension; I44.0 Atrioventricular block, first degree; E78.5 Hyperlipidemia, unspecified; N40.0 Benign prostatic hyperplasia without lower urinary tract symptoms; Z83.3 Family history of diabetes mellitus; Z79.84 Long term (current) use of oral hypoglycemic drugs; Z79.899 Other long term (current) drug therapy
CPT/HCPCS: 27130; 97162; 86900; 86901; 85025; 86850; 88300; 73501; 36415; C1776; J2250; J0171; J1200; J1100; J0690 ×2; J2405; J3010; J1885; J2795; J2370; J2704; J0735; J1170

== ENCOUNTER → 2020-08-12 | Outpatient (CLI) | payer OTHER ==
[2020-08-12 11:03] LABS: Basophils % (A) 1 %; Eosinophils # (A) 0.1 k/uL (0-0.7); Eosinophils % (A) 2 %; HCT 41.9 % (39.0-53.0); HGB 13.5 gm/dL (13.0-17.5); Lymphocytes # (A) 1.3 k/uL (1.0-4.8); Lymphocytes % (A) 20 %; MCH 28.6 pg (25.0-35.0); MCHC 32.2 g/dL (31.0-37.0); MCV 88.7 fL (80.0-100.0); Mean Platelet Volume 7.1; Monocytes # (A) 0.3 k/uL (0-1.0); Monocytes % (A) 5 %; Neutrophils # (A) 4.4 k/uL (1.3-7.7); Neutrophils % (A) 70 %; Platelet Count 217 k/uL (150-450); RBC 4.73 m/uL (4.30-5.90); RDW 13.7 % (11.5-15.5); WBC 6.3 k/uL (3.8-10.6)
[2020-08-12 11:20] LABS: Appearance,Urine Clear (Clear); Bacteria,Urine Rare /hpf; Bilirubin,Urine Negative (Negative); Blood,Urine Negative (Negative); Color,Urine Yellow; Glucose,Urine (UA) Negative (Negative); Ketones,Urine Negative (Negative); Leukocyte Esterase,Urine Trace (Negative); Mucus,Urine Occasional /hpf; Nitrite,Urine Negative (Negative); PH, Urine 6.5 (5.0-8.0); Protein,Urine Trace (Negative); RBC,Urine 6 /hpf (0-5); Specific Gravity,Urine 1.019 (1.001-1.035); Urobilinogen,Urine <2.0 mg/dL (<2.0); WBC,Urine 6 /hpf (0-5)
[2020-08-12 18:49] LABS: African American GFR (CKD) 107.9 (60.0-200.0); BUN/Creat Ratio 16.25 Ratio (12.00-20.00); Calcium 9.2 mg/dL (8.7-10.3); Non-African American GFR(CKD) 93.1 (60.0-200.0); Potassium 4.3 mmol/L (3.5-5.5)
[2020-08-12 19:01] LABS: Hemoglobin A1C 6.4 % (4.0-6.0)
== END | disposition home or self-care (01) ==
LOC: LABWHC1 09:34
PROVIDERS: ATTEND Internal Medicine
DX: E11.65 Type 2 diabetes mellitus with hyperglycemia (principal); E87.8 Other disorders of electrolyte and fluid balance, not elsewhere classified; D64.9 Anemia, unspecified
CPT/HCPCS: 36415; 80048; 81001; 83036; 85025; 87086

== ENCOUNTER → 2020-11-16 | Outpatient (CLI) | payer OTHER ==
[2020-11-16 08:01] LABS: African American GFR (CKD) >90 (>60 ml/min/1.73 sqM); Blood Urea Nitrogen 21 mg/dL (9-20); Non-African American GFR(CKD) >90 (>60 ml/min/1.73 sqM)
--- NOTE | 2020-11-16 11:04 | CT ---
EXAMINATION TYPE: CT urogram wo/w con DATE OF EXAM: 11/16/2020 COMPARISON: None HISTORY: 65-year-old male R31.9, Hematuria, infections TECHNIQUE: Contiguous axial scanning of the abdomen and pelvis performed without and with IV Contrast , patient injected with 100 mL of Isovue 300. Delayed images through the kidneys and bladder were obt ained. Coronal/sagittal reconstructions performed. 3-D reconstructions generated on a dedicated [employer] workstation. CT DLP: 2560.7 mGycm Automated exposure control for dose reduction was used. FINDINGS: Heart upper limits of normal in size without pericardial effusion. Lung bases clear without pleural e ffusion. No focal liver lesion or biliary duct dilatation. Portal venous system is patent. Gallbladder, adrenal glands, spleen, pancreas appear within normal limits. Approximate 5 renal calculi on the right measuring up to 8 mm. Symmetric uptake of contrast from both kidneys. There is mild left-sided pelvocaliectasis. Cyst within the right kidney measures 1.8 cm and within the left kidney measure 2.5 and 2.0 cm. Addit ional subcentimeter hypodensities on both sides are too small for accurate CT characterization and ar e indeterminate. Also indeterminate is a larger 1.5 cm lobulated hypodensity not well identified on t he noncontrast and earlier postcontrast series, refer to axial series 14 image 42. This should be julieta ssessed at follow-up. There is mild left-sided pelvocaliectasis and asymmetric left-sided ureteral enlargement. No left ure teral calculus is identified. The left ureter does not opacify with contrast. The right renal collecting system is clear. The distal third right ureter remains nonopacified limiti ng its assessment. The remainder of the right ureter shows no gross abnormality. No dilated small bowel, free fluid, or free air. No mesenteric or retroperitoneal lymphadenopathy. Mild to moderate stool. Normal appendix. Sigmoid diverticulosis. No pericolic inflammatory change. Mild circumferential bladder wall thickening with mild perivesicular fat stranding. Bladder calculus measures 2.3 cm. Additional 8 mm dependent right-sided bladder calculus. Prostate gland measures 5.5 cm wide. There are no abnormal fluid collection the pelvis or pelvic lymphadenopathy. BONES: Right hip total arthroplasty. [id number] degenerative change left hip. Hypertrophic face t arthropathy mid to lower lumbar spine. Transitional lumbosacral segment is noted as a lumbarized S1 . IMPRESSION: 1. RIGHT-SIDED NEPHROLITHIASIS MEASURING UP TO 8 MM. 2. MILD LEFT-SIDED HYDRONEPHROSIS BUT WITHOUT OBSTRUCTING CALCULUS IDENTIFIED. THERE IS ALSO DELAYED EXCRETION INTO THE LEFT RENAL COLLECTING SYSTEM AND LEFT URETER LIMITING THE UROTHELIUM. CORRELATE WI TH URINE CYTOLOGY AND DIRECT VISUALIZATION INDICATED. 3. BILATERAL RENAL CYSTS MEASURING UP TO 2.5 CM. A HYPODENSE LESION MEASURING 1.5 CM ON THE LEFT IS I NDETERMINATE AND SHOULD BE REASSESSED AT A 6 MONTH FOLLOW-UP. 4. BLADDER CALCULI MEASURING 2.3 CM AND 8 MM. THERE IS ALSO BLADDER WALL THICKENING AND MILD PERIVESI CULAR FAT STRANDING THAT COULD REFLECT CYSTITIS. 5. SIGMOID DIVERTICULOSIS.
== END | disposition home or self-care (01) ==
LOC: RADCTMAIN 07:30
PROVIDERS: ATTEND Urology
DX: N28.1 Cyst of kidney, acquired (principal); K57.30 Diverticulosis of large intestine without perforation or abscess without bleeding; N21.0 Calculus in bladder; N13.2 Hydronephrosis with renal and ureteral calculous obstruction
CPT/HCPCS: 82565; 84520; 74178; 36415; 74400; Q9967

== ENCOUNTER → 2020-12-18 | Outpatient (CLI) | payer OTHER ==
[2020-12-18 14:21] LABS: Basophils # (A) 0.1 k/uL (0-0.2); Basophils % (A) 1 %; Eosinophils # (A) 0.1 k/uL (0-0.7); Eosinophils % (A) 2 %; HCT 41.6 % (39.0-53.0); HGB 13.9 gm/dL (13.0-17.5); Lymphocytes # (A) 1.3 k/uL (1.0-4.8); Lymphocytes % (A) 17 %; MCH 30.4 pg (25.0-35.0); MCHC 33.4 g/dL (31.0-37.0); MCV 90.8 fL (80.0-100.0); Monocytes # (A) 0.5 k/uL (0-1.0); Monocytes % (A) 6 %; Neutrophils # (A) 5.7 k/uL (1.3-7.7); Neutrophils % (A) 74 %; Platelet Count 240 k/uL (150-450); RBC 4.58 m/uL (4.30-5.90); RDW 13.7 % (11.5-15.5); WBC 7.7 k/uL (3.8-10.6)
[2020-12-18 14:38] LABS: Appearance,Urine Cloudy (Clear); Bilirubin,Urine 1+ (Negative); Blood,Urine Moderate (Negative); Calcium Oxalate Crystals,Urine Occasional /hpf; Color,Urine Dark Brown; Glucose,Urine (UA) Negative (Negative); Ketones,Urine Negative (Negative); Leukocyte Esterase,Urine Negative (Negative); Mucus,Urine Few /hpf; Nitrite,Urine Positive (Negative); Protein,Urine 2+ (Negative); RBC,Urine >182 /hpf (0-5); Specific Gravity,Urine 1.027 (1.001-1.035); Squamous Epithelial Cell,Urine 1 /hpf (0-4); WBC,Urine 16 /hpf (0-5)
[2020-12-18 14:42] LABS: African American GFR (CKD) >90 (>60 ml/min/1.73 sqM); Anion Gap 7 mmol/L; Blood Urea Nitrogen 18 mg/dL (9-20); Calcium 9.7 mg/dL (8.4-10.2); Carbon Dioxide 24 mmol/L (22-30); Chloride 108 mmol/L (98-107); Glucose 113 mg/dL (74-99); Non-African American GFR(CKD) >90 (>60 ml/min/1.73 sqM); Potassium 4.2 mmol/L (3.5-5.1); Sodium 139 mmol/L (137-145)
== END | disposition home or self-care (01) ==
LOC: LABPAT 13:07
PROVIDERS: ATTEND Internal Medicine
DX: Z01.818 Encounter for other preprocedural examination (principal); N40.1 Benign prostatic hyperplasia with lower urinary tract symptoms; N13.8 Other obstructive and reflux uropathy; N21.0 Calculus in bladder; N13.30 Unspecified hydronephrosis; R31.29 Other microscopic hematuria
CPT/HCPCS: 36415; 80048; 81001; 85025; 87086

== ENCOUNTER → 2020-12-25 | Day surgery (SDC) | payer OTHER ==
[2020-12-21 12:06] VITALS: BMI 30.4
--- NOTE | 2020-12-24 21:42 | P.HPIHPCON ---
History of Present Illness H&P Date: 12/25/20 Chief Complaint: bladder stones, BPH and left hydronephrosis Mr Kunz is 65 yo male with hx of BPH and microscopic hematuria, He underwent a CT Urogram which showed evidence of 2.3 cm bladder stone and left sided hydronephrosis. He underwent an office cystoscopy that confirmed the finding of bladder stone. I discussed with him given the finding on cystoscopy I recommended we proceed with cystolithalopaxy. Discussed the option of doing TURP at the same time. Discussed with him the risk of bleeding, infection and urinary incontenince. I also discussed with him given his left hydronephrosis we will do a left sided RPG possibile ureteroscopy. Discussed the risk of bleeding, infection and injury to the ureter from the ureteroscopy. He understood all the risk and agreed to proceed with cystolithalopaxy, TURP, Left RP and possible ureteroscopy and stent placement on left Consent for Procedure: I have explained the operation/procedure to the patient, including the risks, benefits, side effects, alternative therapies (including not receiving the proposed treatment or service), the likelihood of the patient achieving his/her goals, and potential recuperation problems for the procedure/sedation/analgesia, as well as any blood products, if indicated. I also explained to the patient the risks, benefits and side effects of the alternatives, as well as the risks related to not receiving the proposed procedure, care, treatment, or services. - Constitutional Constitutional: Denies chills, Denies fever Past Medical History Past Medical History: Diabetes Mellitus, Hypertension, Osteoarthritis (OA), Prostate Disorder Additional Past Medical History / Comment(s): BLADDER STONES History of Any Multi-Drug Resistant Organisms: None Reported Past Surgical History: Orthopedic Surgery Additional Past Surgical History / Comment(s): right knee arthrosocpy, TOTAL RIGHT HIP Past Anesthesia/Blood Transfusion Reactions: No Reported Reaction Additional Past Anesthesia/Blood Transfusion Reaction / Comment(s): no hx. of blood transfusion Smoking Status: Never smoker - Past Family History Mother Family Medical History: Cancer Additional Family Medical History / Comment(s): PANCREATIC CANCER Father Family Medical History: Cancer Medications and Allergies Home Medications Medication Instructions Recorded Confirmed Type Multivitamins, Thera [Multivitamin 1 tab PO DAILY 01/29/20 12/21/20 History (formulary)] Simvastatin [Zocor] 40 mg PO HS 01/29/20 12/21/20 History Tamsulosin HCl [Flomax] 0.4 mg PO BID 01/29/20 12/21/20 History lisinopriL [Zestril] 5 mg PO HS 01/29/20 12/21/20 History metFORMIN HCL 1,000 mg PO BID 01/29/20 12/21/20 History Aspirin 325 mg PO BID PRN 12/21/20 12/21/20 History Allergies Allergy/AdvReac Type Severity Reaction Status Date / Time No Known Allergies Allergy Verified 12/21/20 11:14 Surgical - Exam - General well developed, well nourished - Respiratory normal expansion, normal respiratory effort - Psychiatric oriented to time, oriented to person, oriented to place Assessment and Plan Plan: OR for cystolithalopaxy, TURP, Left RP and possible ureteroscopy and stent placement on left
[~2020-12-25] MED LIST changes: -ACETAMINOPHEN TAB 500 MG TAB PO ONE; -DEXAMETHASONE SOD PHOSPHATE 10 MG/ML 1 ML VIAL IV ONE; +DEXAMETHASONE SOD PHOSPHATE 4 MG/ML 1 ML VIAL IV ONE; +HYDROmorphone (PF) 1 MG/ML ONE; +IOPAMIDOL-370 50ML BTL MISCELLANE ONE; +LACTATED RINGERS 1,000 ML IV ONE; +LIDOCAINE 1% INJ 10MG/ML (20 ML MDV) ONE; -MELOXICAM 7.5 MG TAB PO ONE; -MIDAZOLAM 2 MG/2 ML VIAL IV PRN; +MIDAZOLAM 2 MG/2 ML VIAL ONE; +PROPOFOL 10 MG/ML 20 ML VIAL IV ONE; -ROPIVACAINE 246.25 MG, EPINEPHrine 0.5 MG, KETOROLAC 30 MG, cloNIDine HCL/PF 80 MCG, WA... MISCELLANE ONE; -TRANEXAMIC ACID 1,000 MG in SODIUM CHLORIDE 0.9% 100 ML IVPB ONE; +fentaNYL (PF) 50 MCG/ML 2 ML AMP ONE
[2020-12-25 11:35] LABS: Glucose,Whole Blood 130 mg/dL (75-99)
--- NOTE | 2020-12-25 15:46 | FL ---
Fluoroscopy HISTORY: Left ureteral stricture and stone 60 seconds fluoroscopy time supplied to the referring clinician. 4 intraoperative C-arm images docum ent the procedure. See dictated report from urology.
--- NOTE | 2020-12-25 16:30 | P.OP ---
Date of Procedure: 12/25/20 Preoperative Diagnosis: Bladder stone, BPH, left hydronephrosis Postoperative Diagnosis: Bladder stone, BPH, left hydronephrosis, left ureteral tumor, left renal stone Procedure(s) Performed: Cystoscopy, TURP, cystolitholapaxy left ureteroscopy, holmium laser lithotripsy, ureteral biopsy, ureteral balloon dilation retrograde pyelogram, and stent placement. Implants: 6-Solomon Islander by 26 cm stent left on a string Anesthesia: YAHAIRA Surgeon: Isacc Dennison Estimated Blood Loss (ml): 30 Pathology: other (Left ureteral biopsy, left ureteral cytology, bladder stones, prostate chips) Condition: stable Disposition: PACU Indications for Procedure: Mr Kunz is 65 yo male with hx of BPH and microscopic hematuria, He underwent a CT Urogram which showed evidence of 2.3 cm bladder stone and left sided hydronephrosis. He underwent an office cystoscopy that confirmed the finding of bladder stone. I discussed with him given the finding on cystoscopy I recommended we proceed with cystolithalopaxy. Discussed the option of doing TURP at the same time. Discussed with him the risk of bleeding, infection and urinary incontenince. I also discussed with him given his left hydronephrosis we will do a left sided RPG possibile ureteroscopy. Discussed the risk of bleeding, infection and injury to the ureter from the ureteroscopy. He understood all the risk and agreed to proceed with cystolithalopaxy, TURP, Left RP and possible ureteroscopy and stent placement on left Operative Findings: A left retrograde pyelogram there was area of narrowing along the distal ureter, with significant dilation proximal to that Along the course of the distal ureter there was papillary lesion involving the distal ureter that extended from close to the UVJ and up approximetely 4 cm. 2 large bladder stones Small stone in the lower pole on the left Trilobar hyperplasia of the prostate Description of Procedure: Patient was brought to the operating room, general anesthesia was induced. He was prepped and draped in sterile fashion and placed in dorsal lithotomy position. Cystoscopy into the 22-Solomon Islander sheath was inserted per urethra and cystoscopy was performed which showed a obstructive prostate and 2 large bladder stones. Attention was carried to the left ureteral orifice was intubated with a 6-Sol[place] Islander open-ended catheter, retrograde pyelogram was performed which showed narrowing in the distal ureter from the UVJ and Approximately 4 cm up, and there was severe dilation proximal to that. The sensor wire was advanced through the ureteral catheter and the catheter was removed the wire in place. Next a ureteral balloon dilator was passed over the wire and under fluoroscopy the area of narrowing was dilated. Next a flexible ureteroscope was advanced over the wire up into the kidney. Renoscopy was performed which revealed no abnormality within the kidney. Of note there was a small stone in the lower pole and was dusted using the holmium laser. Ureteroscopy of the proximal and mid ureter showed no abnormality. But at the distal ureter there was multiple papillary lesion concerning for malignancy that were found along the course of the distal ureter, biopsy of those lesions was performed, ureteral washing was also obtained. Next a sensor wire was advanced through the scope and the scope was withdrawn with the wire in place. Next a ureteral stent was passed over the wire, the proximal curl was visualized on fluoroscopy and the distal curl was visualized using the cystoscope, The stent was left on a string. Attention was then carried to the bladder stone. Using holmium laser the bladder stone was fragmented into small fragments, of note there was 2 large stones, stone fragments were removed and sent to pathology. Repeat cystoscopy showed no additional sizable fragments. This time the resectoscope was inserted. Using bipolar current the prostate was resected down to the surgical capsule attention was first taken the median lobe and then followed by the bilateral lateral lobes. The area of resection was thoroughly fulgurated, prostate chips were irrigated out. Repeat cystoscopy showed no evidence of prostate chips or evidence of bleeding. at this time the resectoscope was withdrawn and a 22- [place] Islander Reddy was inserted. The Reddy was irrigated with return of clear urine. The balloon was inflated with 30 mL. The stent string was taped to the patient's Reddy. The patient was awakened from anesthesia and taken to recovery in stable condition
[2020-12-25 16:34] VITALS: TEMP 98.1
[2020-12-25 16:58] LABS: Glucose,Whole Blood 172 mg/dL (75-99)
[2020-12-25 17:43] VITALS: BP 142/79; PULSE 77; RESP 16
== END ==
LOC: OR 10:49
PROVIDERS: ATTEND Urology
DX: N40.1 Benign prostatic hyperplasia with lower urinary tract symptoms (principal); N13.8 Other obstructive and reflux uropathy; N21.0 Calculus in bladder; N32.9 Bladder disorder, unspecified; N13.2 Hydronephrosis with renal and ureteral calculous obstruction; E11.9 Type 2 diabetes mellitus without complications; I10 Essential (primary) hypertension; M19.90 Unspecified osteoarthritis, unspecified site; Z79.84 Long term (current) use of oral hypoglycemic drugs; Z79.82 Long term (current) use of aspirin; Z79.899 Other long term (current) drug therapy; Z91.018 Allergy to other foods; Z96.641 Presence of right artificial hip joint; Z80.0 Family history of malignant neoplasm of digestive organs; Z98.890 Other specified postprocedural states
CPT/HCPCS: 52601; 52356; 52354; 52317; 86900; 86901; 88305; 86850; 86870; 86880; 88300; 74420; C2625; C1758 ×4; C1769; J2250; J1100; J0690; J2405; J2001; J3010; J1170 ×2; J2704; Q9967

== ENCOUNTER → 2021-02-04 | Outpatient (CLI) | payer OTHER ==
[2021-02-05 03:57] LABS: Chol/HDL Ratio 3.5; LDL Cholesterol,Calculated 71.6 mg/dL (0.0-131.0); VLDL Calculation 23.4 mg/dL (5.00-40.00)
[2021-02-05 04:06] LABS: Prostate Specific Antigen 2.7 ng/mL (0.0-4.5)
== END | disposition home or self-care (01) ==
LOC: LABWHC1 10:16
PROVIDERS: ATTEND Internal Medicine
DX: Z00.00 Encounter for general adult medical examination without abnormal findings (principal); E11.9 Type 2 diabetes mellitus without complications; E78.5 Hyperlipidemia, unspecified
CPT/HCPCS: 36415; 80061; 82947; 83036; 84153; 85652

== ENCOUNTER → 2021-08-10 | Outpatient (CLI) | payer OTHER ==
[2021-08-10 09:43] LABS: Basophils % (A) 0 %; Eosinophils # (A) 0.1 k/uL (0-0.7); Eosinophils % (A) 2 %; HCT 42.7 % (39.0-53.0); HGB 14.5 gm/dL (13.0-17.5); Lymphocytes # (A) 1.2 k/uL (1.0-4.8); Lymphocytes % (A) 18 %; MCH 30.7 pg (25.0-35.0); MCHC 33.9 g/dL (31.0-37.0); MCV 90.6 fL (80.0-100.0); Mean Platelet Volume 7.3; Monocytes # (A) 0.3 k/uL (0-1.0); Monocytes % (A) 5 %; Neutrophils # (A) 4.9 k/uL (1.3-7.7); Neutrophils % (A) 74 %; Platelet Count 268 k/uL (150-450); RBC 4.72 m/uL (4.30-5.90); RDW 13.9 % (11.5-15.5); WBC 6.6 k/uL (3.8-10.6)
[2021-08-10 09:45] LABS: Appearance,Urine Clear (Clear); Bacteria,Urine Many /hpf; Bilirubin,Urine Negative (Negative); Blood,Urine Negative (Negative); Color,Urine Yellow; Glucose,Urine (UA) Negative (Negative); Ketones,Urine Negative (Negative); Leukocyte Esterase,Urine Large (Negative); Mucus,Urine Rare /hpf; Nitrite,Urine Positive (Negative); Protein,Urine Negative (Negative); RBC,Urine 5 /hpf (0-5); Specific Gravity,Urine 1.015 (1.001-1.035); Squamous Epithelial Cell,Urine <1 /hpf (0-4); Urobilinogen,Urine <2.0 mg/dL (<2.0); WBC,Urine 54 /hpf (0-5)
[2021-08-10 09:51] LABS: African American GFR (CKD) >90 (>60 ml/min/1.73 sqM); Anion Gap 7 mmol/L; Blood Urea Nitrogen 15 mg/dL (9-20); Calcium 9.8 mg/dL (8.4-10.2); Carbon Dioxide 25 mmol/L (22-30); Chloride 107 mmol/L (98-107); Glucose 171 mg/dL (74-99); Non-African American GFR(CKD) 90 (>60 ml/min/1.73 sqM); Potassium 4.7 mmol/L (3.5-5.1); Sodium 139 mmol/L (137-145)
== END | disposition home or self-care (01) ==
LOC: LABPAT 08:09
PROVIDERS: ATTEND Urology
DX: Z01.812 Encounter for preprocedural laboratory examination (principal); E11.9 Type 2 diabetes mellitus without complications; N39.0 Urinary tract infection, site not specified; N13.30 Unspecified hydronephrosis
CPT/HCPCS: 36415; 80048; 81001; 85025; 87077; 87086; 87186

== ENCOUNTER 2021-08-16 07:45 | Day surgery (SDC) | payer OTHER ==
[2021-08-12 09:05] VITALS: BMI 30.1
[2021-08-16] MEDS ORDERED: DEXAMETHASONE SOD PHOSPHATE 4 MG/ML 1 ML VIAL IV ONE (07:57)
[2021-08-16] MEDS ORDERED: MIDAZOLAM 2 MG/2 ML VIAL IV PRN (07:57)
[2021-08-16] MEDS ORDERED: ONDANSETRON 4 MG/2 ML VIAL IVP ONE (07:57)
[2021-08-16] MEDS ORDERED: HYDROmorphone 0.5 MG/0.5 ML SYRINGE IVP PRN (07:57)
[2021-08-16] MEDS ORDERED: LACTATED RINGERS 1,000 ML IV SCH (07:57)
[2021-08-16 08:31] LABS: Glucose,Whole Blood 148 mg/dL (75-99)
--- NOTE | 2021-08-16 09:05 | P.HPIHPCON ---
History of Present Illness H&P Date: 08/16/21 Chief Complaint: Left ureteral lesion This is a 66-year-old male with history of papillary lesion along the left distal ureter, that was visualized back in November 2020. Of note he has a stone at that site. Biopsy of the lesion came back benign. Discussed with him given the appearance a recommend a repeat ureteroscopy to assess for resolution. Discussed with him this could be either an inflammatory reaction to the stone, but the other concern would be malignancy. I discussed with him if it is still present and we'll obtain a repeat biopsy of that area. Discussed with him the risk of surgery which includes but not limited to bleeding, infection, injury to the ureter. Discussed also risks of anesthesia. He understood all the risk and agreed to proceed with diagnostic left ureteroscopy possible stent placement Consent for Procedure: I have explained the operation/procedure to the patient, including the risks, benefits, side effects, alternative therapies (including not receiving the proposed treatment or service), the likelihood of the patient achieving his/her goals, and potential recuperation problems for the procedure/sedation/analgesia, as well as any blood products, if indicated. I also explained to the patient the risks, benefits and side effects of the alternatives, as well as the risks related to not receiving the proposed procedure, care, treatment, or services. - Constitutional Constitutional: Denies chills, Denies fever - Respiratory Respiratory: Denies cough, Denies 7 - Gastrointestinal Gastrointestinal: Denies abdominal pain, Denies diarrhea, Denies nausea, Denies vomiting - Genitourinary (Male) Genitourinary: Denies dysuria, Denies hematuria Past Medical History Past Medical History: Diabetes Mellitus, Hyperlipidemia, Hypertension, Osteoarthritis (OA), Prostate Disorder Additional Past Medical History / Comment(s): BLADDER STONES History of Any Multi-Drug Resistant Organisms: None Reported Past Surgical History: Joint Replacement, Orthopedic Surgery Additional Past Surgical History / Comment(s): right knee arthrosocpy, total right hip (March 2020), cystoscopy with TURP lithotripsy & ureteral stent (Nov 2020) Past Anesthesia/Blood Transfusion Reactions: No Reported Reaction Additional Past Anesthesia/Blood Transfusion Reaction / Comment(s): . Past Psychological History: No Psychological Hx Reported Smoking Status: Never smoker Past Alcohol Use History: Occasional Past Drug Use History: None Reported - Past Family History Mother Family Medical History: Cancer Additional Family Medical History / Comment(s): PANCREATIC CANCER Father Family Medical History: Cancer Additional Family Medical History / Comment(s): prostate cancer Medications and Allergies Home Medications Medication Instructions Recorded Confirmed Type Simvastatin [Zocor] 40 mg PO HS 01/29/20 08/16/21 History lisinopriL [Zestril] 5 mg PO HS 01/29/20 08/16/21 History metFORMIN HCL [Glucophage] 1,000 mg PO BID 01/29/20 08/16/21 History Ibuprofen 400 - 600 mg PO DIRECTED PRN 08/12/21 08/16/21 History Multivit-Min/Folic/Vit K/Lycop 1 each PO DAILY 08/12/21 08/16/21 History [Men's Multivitamin Tablet] Sulfamethoxazole/Trimethoprim 08/16/21 History [Sulfamethoxazole-Tmp Ds Tablet] Allergies Allergy/AdvReac Type Severity Reaction Status Date / Time No Known Allergies Allergy Verified 08/16/21 08:13 Surgical - Exam Vital Signs Temp Pulse Resp BP Pulse Ox 97.7 F 73 18 131/71 95 08/16/21 08:16 08/16/21 08:16 08/16/21 08:16 08/16/21 08:16 08/16/21 08:16 - General well developed, well nourished, no distress, no pain - Eyes PERRL, normal ocular movement - ENT normal nares, normal mucosa - Respiratory normal expansion, normal respiratory effort - Abdomen Abdomen: soft, non tender Results - Labs Abnormal Lab Results - Last 24 Hours (Table) 08/16/21 Range/Units 08:26 POC Glucose (mg/dL) 148 H (75-99) mg/dL Assessment and Plan Assessment: OR for left ureteroscopy, possible stent placement
[2021-08-16] MEDS ORDERED: LIDOCAINE 1% INJ 10MG/ML (20 ML MDV) ONE (09:19)
[2021-08-16] MEDS ORDERED: fentaNYL (PF) 50 MCG/ML 2 ML AMP ONE (09:19)
[2021-08-16] MEDS ORDERED: PROPOFOL 10 MG/ML 20 ML VIAL IV ONE (09:19)
[2021-08-16] MEDS ORDERED: MIDAZOLAM 2 MG/2 ML VIAL ONE (09:19)
[2021-08-16] MEDS ORDERED: KETOROLAC 15 MG/ML 1 ML VIAL ONE (09:19)
[2021-08-16] MEDS ORDERED: IOPAMIDOL M200 10 ML VIAL MISCELLANE ONE (09:39)
[2021-08-16 10:09] VITALS: TEMP 97
[2021-08-16 10:15] LABS: Glucose,Whole Blood 151 mg/dL (75-99)
[2021-08-16 10:22] VITALS: RESP 16
--- NOTE | 2021-08-16 10:24 | FL ---
EXAMINATION TYPE: FL urography retrograde DATE OF EXAM: 08/16/2021 COMPARISON: NONE HISTORY: LEFT HYDRONEPHROSIS TECHNIQUE: Fluoroscopy. FINDINGS: Fluoroscopy was utilized for retrograde pyelography. IMPRESSION: As Above.
--- NOTE | 2021-08-16 10:26 | P.OP ---
Date of Procedure: 08/16/21 Preoperative Diagnosis: Left ureteral tumor Postoperative Diagnosis: Same Procedure(s) Performed: Cystoscopy, left retrograde pyelogram, ureteroscopy and balloon dilation Implants: None Anesthesia: ARIELA Surgeon: Isacc Dennison Estimated Blood Loss (ml): 1 Pathology: other (Left ureteral cytology) Condition: stable Disposition: PACU Indications for Procedure: This is a 66-year-old male with history of papillary lesion along the left distal ureter, that was visualized back in November 2020. Of note he has a stone at that site. Biopsy of the lesion came back benign. Discussed with him given the appearance a recommend a repeat ureteroscopy to assess for resolution. Discussed with him this could be either an inflammatory reaction to the stone, but the other concern would be malignancy. I discussed with him if it is still present and we'll obtain a repeat biopsy of that area. Discussed with him the risk of surgery which includes but not limited to bleeding, infection, injury to the ureter. Discussed also risks of anesthesia. He understood all the risk and agreed to proceed with diagnostic left ureteroscopy possible stent placement Operative Findings: Normal left ureteroscopy, no tumor visualized Description of Procedure: Patient was brought to the operating room, general anesthesia was induced. He was prepped and draped in sterile fashion and placed in dorsal lithotomy positi on. Cystoscopy fitted with a 21-Swedish sheath was inserted per urethra, cystoscopy was performed showed no abnormality within the bladder. Of note patient had trilobar hyperplasia. Attention was then carried to the left ureteral orifice which was intubated with a sensor wire. Of note the ureteral orifice was narrowed, thus a ureteral balloon dilator was passed over the wire and dilated under fluoroscopy. Next the balloon dilator was removed with the wire in place. Next a semirigid ureteroscope was advanced through the urethra and up the left ureteral orifice, ureteroscope was advanced all the way up to the proximal ureter which showed no abnormality along the course of the ureter, no papillary tumors were visualized in the distal ureter at this time. Retrograde pyelogram was performed through the scope which showed no filling defect in the kidney, the renal pelvis and the ureter was slightly dilated, but there was no calyceal dilation or blunting appreciated. Ureteral cytology was obtained along the distal ureter. Pullback ureteroscopy was performed which showed no injury to the ureter or any abnormal ureteral lesions. The bladder was emptied at the end of the case. Patient tolerated the procedure well was taken to PACU in stable condition.
[2021-08-16] MEDS ORDERED: SODIUM CHLORIDE 0.9% 1,000 ML IV ONE ×2 (10:30)
[2021-08-16 11:24] VITALS: BP 144/80; PULSE 63
== END 2021-08-16 12:27 | disposition home or self-care (01) ==
LOC: OR 07:45
PROVIDERS: ATTEND Urology
DX: N13.30 Unspecified hydronephrosis (principal); E11.9 Type 2 diabetes mellitus without complications; E78.5 Hyperlipidemia, unspecified; I10 Essential (primary) hypertension; M19.90 Unspecified osteoarthritis, unspecified site; Z85.46 Personal history of malignant neoplasm of prostate; Z79.84 Long term (current) use of oral hypoglycemic drugs; Z79.899 Other long term (current) drug therapy
CPT/HCPCS: 52351; 88108; 74420; C1769; J2250; J1100; J0690; J2405; J2001; J3010; J1885; J2704; Q9966

== ENCOUNTER → 2021-09-03 | Outpatient (CLI) | payer OTHER ==
[2021-09-03 21:33] LABS: African American GFR (CKD) 102.1 (60.0-200.0); Anion Gap 11.9 mmol/L (4.00-12.00); BUN/Creat Ratio 18.56 Ratio (12.00-20.00); Blood Urea Nitrogen 16.7 mg/dL (9.0-27.0); Calcium 9.8 mg/dL (8.7-10.3); Carbon Dioxide 23.1 mmol/L (21.6-31.8); Non-African American GFR(CKD) 88.1 (60.0-200.0); Potassium 5.3 mmol/L (3.5-5.5); Prolactin 4.5 ng/mL (2.100-17.700)
== END | disposition home or self-care (01) ==
LOC: LAB 11:52
PROVIDERS: ATTEND Internal Medicine
DX: E87.8 Other disorders of electrolyte and fluid balance, not elsewhere classified (principal); E11.65 Type 2 diabetes mellitus with hyperglycemia; E23.0 Hypopituitarism
CPT/HCPCS: 36415; 80048; 83036; 84146; 84402; 84403

== ENCOUNTER → 2022-01-05 | Outpatient (CLI) | payer OTHER ==
[2022-01-05 18:35] LABS: African American GFR (CKD) 88.8 (60.0-200.0); Anion Gap 10.5 mmol/L (10.00-18.00); BUN/Creat Ratio 17.62 Ratio (12.00-20.00); Blood Urea Nitrogen 17.8 mg/dL (9.0-27.0); Calcium 9.5 mg/dL (8.7-10.3); Carbon Dioxide 22.5 mmol/L (20.0-27.5); Non-African American GFR(CKD) 76.6 (60.0-200.0); Potassium 4.8 mmol/L (3.5-5.5)
== END | disposition home or self-care (01) ==
LOC: LABWHC1 10:41
PROVIDERS: ATTEND Internal Medicine
DX: E11.65 Type 2 diabetes mellitus with hyperglycemia (principal); I10 Essential (primary) hypertension; E87.8 Other disorders of electrolyte and fluid balance, not elsewhere classified
CPT/HCPCS: 36415; 80048; 83036

== ENCOUNTER → 2022-01-13 | Outpatient (CLI) | payer OTHER ==
[2022-01-13 15:33] LABS: Basophils # (A) 0.06 X 10*3/uL (0.00-0.10); Basophils % (A) 0.9 %; Eosinophils # (A) 0.27 X 10*3/uL (0.04-0.35); HCT 44.1 % (39.6-50.0); HGB 14.3 g/dL (13.0-17.0); Immature Grans, Automated 0.4 %; Lymphocytes # (A) 1.57 X 10*3/uL (0.90-5.00); Lymphocytes % (A) 23.5 %; MCH 29.7 pg (27.0-32.0); MCHC 32.4 g/dL (32.0-37.0); MCV 91.7 fL (80.0-97.0); Mean Platelet Volume 10.1 fL (9.5-12.2); Monocytes # (A) 0.62 X 10*3/uL (0.20-1.00); Monocytes % (A) 9.3 %; NRBC Per 100 WBC 0 /100 WBCS (0.0-0.0); Neutrophils # (A) 4.12 X 10*3/uL (1.80-7.70); Neutrophils % (A) 61.9 %; Platelet Count 316 X 10*3/uL (140-440); RBC 4.81 X 10*6/uL (4.40-5.60); RDW 13.5 % (11.5-14.5); WBC 6.67 X 10*3/uL (4.50-10.00)
[2022-01-13 16:37] LABS: T4, Free (Free Thyroxine) 1.16 ng/dL (0.800-1.800)
== END | disposition home or self-care (01) ==
LOC: LABWHC1 10:42
PROVIDERS: ATTEND Internal Medicine
DX: E11.65 Type 2 diabetes mellitus with hyperglycemia (principal); B34.9 Viral infection, unspecified
CPT/HCPCS: 36415; 84439; 84443; 85025; 87502

== ENCOUNTER → 2022-08-02 | Outpatient (CLI) | payer OTHER ==
--- NOTE | 2022-08-02 10:37 | US ---
EXAMINATION TYPE: US kidneys/renal and bladder DATE OF EXAM: 08/02/2022 COMPARISON: CT urogram November 16, 2020 CLINICAL HISTORY: N13.30 HYDRONEPHROSIS. Hydronephrosis. Hx uteroscopy 2020. Hx stones. EXAM MEASUREMENTS: Right Kidney: 12.0 x 7.6 x 6.5 cm Left Kidney: 12.8 x 5.8 x 6.4 cm Right Kidney: Simple appearing cortical cyst medially: 2.0 x 1.8 x 1.9 cm. Hyperechoic focus with shadowing seen lower: 1.1 x 0.8 x 0.6 cm. Left Kidney: Appearance of hydronephrosis medially. Imaged post-void as well, hydronephrosis appeare d to be less prominent post-void. Anechoic area seen lower: 2.3 x 2.4 x 2.5 cm. Hypoechoic area seen upper: 2.5 x 2.8 x 2.0 cm. Hyperechoic focus seen mid: 0.5 x 0.5 x 0.7 cm. Bladder: Appears anechoic. Bilateral Jets seen: Right jet seen. Possible left jet seen, difficult to visualize with certainty. There are thin-walled cysts bilaterally. Cysts are better seen on prior CT versus today's ultrasound. Technologist villeda 1.1 cm hyperechoic shadowing focus lower pole of the right kidney. There is persi stent [id number] left-sided hydronephrosis. Technologist villeda 5 mm shadowing hyperechoic focus midpole level left kidney. Bladder adequately distended. Bilateral distal ureter jets not seen. IMPRESSION: Persistent [id number] left-sided hydronephrosis similar to 2020 CT. Cannot exclude new nonobstructing bilateral renal calculi. Correlate clinically.
== END | disposition home or self-care (01) ==
LOC: RADUSWWP 08:44
PROVIDERS: ATTEND Urology
DX: N13.30 Unspecified hydronephrosis (principal)
CPT/HCPCS: 76770

== ENCOUNTER → 2022-08-16 | Outpatient (CLI) | payer OTHER ==
[2022-08-16 15:28] LABS: African American GFR (CKD) 89.2 (60.0-200.0); Anion Gap 10.1 mmol/L (10.00-18.00); BUN/Creat Ratio 15.7 Ratio (12.00-20.00); Blood Urea Nitrogen 15.7 mg/dL (9.0-27.0); Calcium 9.2 mg/dL (8.7-10.3); Carbon Dioxide 23.9 mmol/L (20.0-27.5); Potassium 4.2 mmol/L (3.5-5.5)
[2022-08-16 17:51] LABS: Appearance,Urine Clear (Clear); Bilirubin,Urine Negative (Negative); Blood,Urine Negative (Negative); Color,Urine Dark Yellow (Yellow); Ketones,Urine Negative (Negative); Nitrite,Urine Negative (Negative); PH, Urine 6.5 (5.0-8.0); Specific Gravity,Urine 1.022 (1.001-1.030)
[2022-08-16 17:58] LABS: Bacteria,Urine None Seen /HPF (None Seen)
== END | disposition home or self-care (01) ==
LOC: LABWHC1 08:56
PROVIDERS: ATTEND Internal Medicine
DX: I10 Essential (primary) hypertension (principal); E11.65 Type 2 diabetes mellitus with hyperglycemia; N39.0 Urinary tract infection, site not specified
CPT/HCPCS: 36415; 80048; 81001; 83036; 87086

== ENCOUNTER → 2022-08-24 | Outpatient (CLI) | payer OTHER ==
--- NOTE | 2022-08-24 16:11 | CT ---
EXAMINATION TYPE: CT urogram wo/w con DATE OF EXAM: 08/24/2022 COMPARISON: 11/16/2020 INDICATION: hydronephrosis and hx of kidney stones DLP: 3957 mGycm, Automated exposure control for dose reduction was used. CONTRAST: 90 mL of Isovue 300. Study performed without Oral Contrast TECHNIQUE: Axial images were obtained from above the diaphragm to the pubic rami in the axial plane a t 5 mm thick sections. Reconstructed images are reviewed on the computer in the coronal plane. FINDINGS: Limited CT sections are obtained the lung bases. The lung bases are clear. CT ABDOMEN: Liver: Normal Spleen: Normal Pancreas: Normal Adrenal glands: The adrenal glands are normal. Gallbladder: Normal Kidneys: No masses are evident. Minimal left hydronephrosis and hydroureter may be present. No obstru cting ureteral stone is evident. Ureter follows a normal caliber course and contour to the urinary b ladder. Punctate calcification is within the lateral mid right kidney. Series 3 image 74. No obstruc tion is evident. There is a 0.7 cm calcification in the mid left kidney. Series 3 image 79. An nonobs tructing renal stones within the inferior pole right kidney measuring 11.0 cm. Series 3 image 83. Pun ctate calcification about obstruction is in the anterior inferior pole right kidney. Series 3 image 8 1. There is a 2.4 cm cyst on the mid medial pole left kidney. Some minimal wall calcification is presen t. Additional bilateral renal cysts are present. Delayed images were obtained through the kidneys, w hich remain unremarkable. Aorta: Vascular calcification is within the aorta. Inferior vena cava: Normal. CT PELVIS: Limitation visualizing the mid to inferior pelvis due to beam hardening artifact from a ri ght hip prosthesis. Loops of bowel within the abdomen and pelvis are normal. The study is lateral contrast limiting b owel evaluation. Diverticular changes are noted within the sigmoid colon. Appendix: Normal as visualized. Urinary bladder: Normal. Genitourinary structures: Osseous structures: No suspicious lytic or sclerotic lesions. IMPRESSIONS: 1. Mild left hydronephrosis and hydroureter. No obstructing etiology is evident. There is better vis ualization of the ureter on the current examination was slightly diminished left hydronephrosis. 2. Nonobstructing right renal calcifications.
== END | disposition home or self-care (01) ==
LOC: RADCTMAIN 13:40
PROVIDERS: ATTEND Urology
DX: N13.30 Unspecified hydronephrosis (principal); N13.4 Hydroureter
CPT/HCPCS: 82565; 84520; 74178; 36415; 74400; Q9967

== ENCOUNTER → 2022-12-22 | Outpatient (CLI) | payer OTHER ==
[2022-12-22 19:44] LABS: African American GFR (CKD) 89.2 (60.0-200.0); BUN/Creat Ratio 16.9 Ratio (12.00-20.00); Blood Urea Nitrogen 16.9 mg/dL (9.0-27.0); Calcium 9.6 mg/dL (8.7-10.3); Carbon Dioxide 26.8 mmol/L (20.0-27.5); Potassium 4.1 mmol/L (3.5-5.5)
== END | disposition home or self-care (01) ==
LOC: LABWHC1 13:34
PROVIDERS: ATTEND Internal Medicine
DX: E11.65 Type 2 diabetes mellitus with hyperglycemia (principal); E87.8 Other disorders of electrolyte and fluid balance, not elsewhere classified
CPT/HCPCS: 36415; 80048; 83036

== ENCOUNTER → 2023-03-29 | Outpatient (CLI) | payer OTHER | END | disposition home or self-care (01) | LOC: LABWHC1 06:56 | PROVIDERS: ATTEND Internal Medicine | DX: E11.65 Type 2 diabetes mellitus with hyperglycemia (principal) | CPT/HCPCS: 36415; 82947; 83036 ==

== ENCOUNTER → 2024-01-19 | Outpatient (CLI) | payer SELFPAY ==
[2024-01-19 19:00] LABS: BUN/Creat Ratio 12.64 Ratio (12.00-20.00); Blood Urea Nitrogen 13.9 mg/dL (9.0-27.0); Calcium 10.3 mg/dL (8.7-10.3); Carbon Dioxide 24.1 mmol/L (21.6-31.8); Chloride 105 mmol/L (96-109); Glucose 126 mg/dL (70-110); Potassium 5.1 mmol/L (3.5-5.5); Sodium 141 mmol/L (135-145)
== END | disposition home or self-care (01) ==
LOC: LABWHC1 11:26
PROVIDERS: ATTEND Internal Medicine
DX: E11.9 Type 2 diabetes mellitus without complications (principal)
CPT/HCPCS: 36415; 80048; 83036

== ENCOUNTER → 2024-07-30 | Outpatient (CLI) | payer BC ==
[2024-07-30 16:49] LABS: Basophils # (A) 0.05 X 10*3/uL (0.00-0.10); Basophils % (A) 0.7 %; Eosinophils # (A) 0.24 X 10*3/uL (0.04-0.35); Eosinophils % (A) 3.6 %; HCT 42.5 % (39.6-50.0); HGB 14.1 g/dL (13.0-17.0); Lymphocytes # (A) 1.12 X 10*3/uL (0.90-5.00); Lymphocytes % (A) 16.6 %; MCH 30.2 pg (27.0-32.0); MCHC 33.2 g/dL (32.0-37.0); Monocytes # (A) 0.49 X 10*3/uL (0.20-1.00); Monocytes % (A) 7.3 %; NRBC Per 100 WBC 0 X 10*3/uL (0.00-0.01); Neutrophils # (A) 4.81 X 10*3/uL (1.80-7.70); Neutrophils % (A) 71.5 %; Platelet Count 260 X 10*3/uL (140-440); RBC 4.67 X 10*6/uL (4.40-5.60); RDW 14.1 % (11.5-14.5); WBC 6.73 X 10*3/uL (4.50-10.00)
[2024-07-30 17:15] LABS: Erythrocyte Sedimentation Rate 5 mm/Hr (0-20)
[2024-07-30 17:22] LABS: % Iron Saturation 13.47 (15.00-50.00); ALT 23 U/L (10-49); AST 32 U/L (14-35); Albumin 4.6 g/dL (3.8-4.9); Albumin/Globulin Ratio 1.92 Ratio (1.60-3.17); Alkaline Phosphatase 58 U/L (41-126); Blood Urea Nitrogen 16.4 mg/dL (9.0-27.0); C Reactive Protein <0.30 mg/dL (0.00-0.80); Calcium 9.4 mg/dL (8.7-10.3); Carbon Dioxide 21.7 mmol/L (21.6-31.8); Chloride 108 mmol/L (96-109); Chol/HDL Ratio 3.14 Ratio; Creatine Kinase 234 U/L (35-257); Ferritin 24.3 ng/mL (22.0-322.0); Globulin 2.4 g/dL (1.6-3.3); Glucose 137 mg/dL (70-110); Iron 64 UG/DL (65-175); LDL Cholesterol,Calculated 102.4 mg/dL (0.0-131.0); Phosphorus 2.1 mg/dL (2.4-5.1); Potassium 4.5 mmol/L (3.5-5.5); Sodium 141 mmol/L (135-145); Total Bilirubin 0.4 mg/dL (0.3-1.2); Total Iron Binding Capacity 475 UG/DL (228-460)
== END | disposition home or self-care (01) ==
LOC: LABWHC1 10:25
PROVIDERS: ATTEND Internal Medicine
DX: Z00.00 Encounter for general adult medical examination without abnormal findings (principal); N40.0 Benign prostatic hyperplasia without lower urinary tract symptoms; I10 Essential (primary) hypertension; E87.8 Other disorders of electrolyte and fluid balance, not elsewhere classified; E78.5 Hyperlipidemia, unspecified; E11.65 Type 2 diabetes mellitus with hyperglycemia; D64.9 Anemia, unspecified; E03.9 Hypothyroidism, unspecified; M81.0 Age-related osteoporosis without current pathological fracture; E66.9 Obesity, unspecified; E55.9 Vitamin D deficiency, unspecified
CPT/HCPCS: 36415; 80053; 80061; 82306; 82550; 82728; 83036; 83540; 83550; 84100; 84153; 84443; 85025; 85652; 86140

== ENCOUNTER → 2024-11-09 | Outpatient (CLI) | payer BC, OTHER | END | disposition home or self-care (01) | LOC: LABWHC1 07:59 | PROVIDERS: ATTEND Internal Medicine | DX: E11.65 Type 2 diabetes mellitus with hyperglycemia (principal) | CPT/HCPCS: 36415; 82947; 83036 ==

== ENCOUNTER → 2025-02-13 | Outpatient (CLI) | payer OTHER ==
--- NOTE | 2025-02-13 11:38 | XR ---
EXAMINATION TYPE: XR chest 2V DATE OF EXAM: 02/13/2025 11:32 AM COMPARISON: None. CLINICAL INDICATION: Male, 69 years old with history of SOB: Shortness of breath TECHNIQUE: XR chest 2V views of the chest are obtained. FINDINGS: Scattered senescent parenchymal changes noted. Hyperinflation compatible with COPD. No evidence for infiltrate. No evidence for atelectasis. Heart size is stable. Mediastinal structures are stable and grossly unremarkable. No evidence for hilar prominence. Degenerative changes dorsal spine. IMPRESSION: 1. No evidence for acute pulmonary disease. [facility], , 02/13/2025 11:35 AM
[2025-02-13 14:57] LABS: BUN/Creat Ratio 17.33 Ratio (12.00-20.00); Blood Urea Nitrogen 15.6 mg/dL (9.0-27.0); Calcium 9.5 mg/dL (8.7-10.3); Carbon Dioxide 26.1 mmol/L (21.6-31.8); Chloride 108 mmol/L (96-109); Glucose 123 mg/dL (70-110); Potassium 4.5 mmol/L (3.5-5.5); Sodium 142 mmol/L (135-145)
== END ==
LOC: LABWHC1 11:06
PROVIDERS: ATTEND Internal Medicine
DX: I10 Essential (primary) hypertension (principal); E11.65 Type 2 diabetes mellitus with hyperglycemia; R06.83 Snoring
CPT/HCPCS: 36415; 71046; 80048; 82043; 82570; 83036